=== PATIENT | female | born 2000 | race Caucasian/White ===

== ENCOUNTER 2020-04-28 19:44 | Emergency (ER) | payer BC ==
[~2020-04-28] VITALS: Ht 172.7 cm; Wt 65.8 kg
[2020-04-28 19:49] VITALS: BP 115/70
== END 2020-04-28 23:33 | disposition left against medical advice (07) ==
LOC: ED 19:44
DX: Z53.21 Procedure and treatment not carried out due to patient leaving prior to being seen by health care provider (principal)